=== PATIENT | male | born 1970 | race Caucasian/White ===

== ENCOUNTER → 2018-07-08 | Outpatient (CLI) | payer BC ==
--- NOTE | 2018-07-08 10:41 | XR ---
EXAMINATION TYPE: XR chest 2V DATE OF EXAM: 07/08/2018 COMPARISON: None HISTORY: 48-year-old male tobacco use and shortness of breath TECHNIQUE: Frontal and lateral views FINDINGS: The cardiomediastinal silhouette, aorta, and pulmonary vasculature are within normal limits. Lungs an d pleural spaces are clear. IMPRESSION: No acute cardiopulmonary process.
== END | disposition home or self-care (01) ==
LOC: RADXRMAIN 09:20
PROVIDERS: ATTEND Nurse Practitioner Family
DX: R06.02 Shortness of breath (principal); Z72.0 Tobacco use
CPT/HCPCS: 71046

== ENCOUNTER 2018-07-13 08:28 | Day surgery (SDC) | payer BC, MEDICAID ==
[2018-07-12 09:32] VITALS: BMI 25.7
[~2018-07-13 08:28] MED LIST: HYDROmorphone 0.5 MG/0.5 ML SYRINGE IVP PRN; LACTATED RINGERS 1,000 ML IV SCH; LIDOCAINE 1% 20 ML VIAL (10MG/ML) FOR IV START INTRADERMA PRN
[2018-07-13 08:51] VITALS: TEMP 97.9
[2018-07-13] MEDS ORDERED: LIDOCAINE 1% INJ 10MG/ML (20 ML MDV) ONE (09:38)
[2018-07-13] MEDS ORDERED: fentaNYL (PF) 50 MCG/ML 2 ML AMP ONE (09:38)
[2018-07-13] MEDS ORDERED: MIDAZOLAM 2 MG/2 ML VIAL ONE (09:38)
[2018-07-13] MEDS ORDERED: PROPOFOL 10 MG/ML 20 ML VIAL IV ONE (09:38)
--- NOTE | 2018-07-13 09:41 | P.GSHP ---
History of Present Illness H&P Date: 07/13/18 Chief Complaint: Screening colonoscopy This is a 48-year-old male presents today for screening colonoscopy. Patient denies a significant GI complaints. Past Medical History Past Medical History: No Reported History History of Any Multi-Drug Resistant Organisms: None Reported Past Surgical History: Appendectomy Past Anesthesia/Blood Transfusion Reactions: No Reported Reaction Smoking Status: Current every day smoker - Past Family History Mother Family Medical History: No Reported History Medications and Allergies Home Medications Medication Instructions Recorded Confirmed Type No Known Home Medications 07/12/18 07/13/18 History Allergies Allergy/AdvReac Type Severity Reaction Status Date / Time No Known Allergies Allergy Verified 07/13/18 08:48 Surgical - Exam Vital Signs Temp Pulse Resp BP Pulse Ox 97.9 F 92 18 166/90 97 07/13/18 08:50 07/13/18 08:50 07/13/18 08:50 07/13/18 08:50 07/13/18 08:50 - General well developed, no distress - Eyes PERRL - ENT normal pinna - Neck no masses - Respiratory normal expansion - Cardiovascular Rhythm: regular - Abdomen Abdomen: soft, non tender Assessment and Plan Assessment: We will perform screening colonoscopy.
--- NOTE | 2018-07-13 09:54 | P.OP ---
Date of Procedure: 07/13/18 Preoperative Diagnosis: Screening colonoscopy Postoperative Diagnosis: Diverticulosis Right colon polyp Procedure(s) Performed: Colonoscopy Anesthesia: MAC Surgeon: Brayan Dos Santos Pathology: other (Right colon polyp) Condition: stable Disposition: PACU Description of Procedure: The patient's placed on the endoscopy table in the lateral position. He received IV sedation. Digital rectal exam was performed which revealed no abnormalities. The flexible colonoscope was then placed patient anus and passed throughout the entire colon. The ileocecal valve was visualized. The cecum appeared normal. In the right colon there was a small polyp. This removed the forcep. The transverse colon was normal. In the descending and sigmoid colon there is moderate diverticular changes. Scope was then brought back the rectum and this appeared normal. Scope was withdrawn for patient..
[2018-07-13 10:26] VITALS: BP 147/92; PULSE 85; RESP 16
== END 2018-07-13 11:59 | disposition home or self-care (01) ==
LOC: ORWHC2ENDO 08:28
PROVIDERS: ATTEND Surgery
DX: Z12.11 Encounter for screening for malignant neoplasm of colon (principal); D12.2 Benign neoplasm of ascending colon; K57.30 Diverticulosis of large intestine without perforation or abscess without bleeding; F17.210 Nicotine dependence, cigarettes, uncomplicated
CPT/HCPCS: 88305; 45380; J2250; J2001; J3010; J2704

== ENCOUNTER 2020-02-14 20:54 | Emergency (ER) | payer BC, OTHER ==
[2020-02-14] MEDS ORDERED: LIDOCAINE 1% INJ 10MG/ML (20 ML MDV) SQ ONE (21:48)
[2020-02-14] MEDS ORDERED: CEPHALEXIN 500MG STARTER PACK 4 CAP BTL PO STA (21:48)
--- NOTE | 2020-02-14 22:05 | XR ---
EXAMINATION TYPE: XR knee complete RT DATE OF EXAM: 02/14/2020 COMPARISON: NONE HISTORY: Knee pain TECHNIQUE: 3 views FINDINGS: There is laceration deformity over the anterior proximal tibia. There is mild spurring of t he anterior patella. I see no fracture nor dislocation. Joint spaces are normal. IMPRESSION: Laceration deformity. No fracture seen. There is probably small multiple soft tissue fore ign bodies at the laceration site.
[2020-02-14] MEDS ORDERED: WATER FOR IRRIG, STERILE 1,000 ML BTL IRRIGATION ONE (22:14)
[2020-02-14] MEDS ORDERED: DIPH,PERTUS(ACELL)TETVAC-LF 0.5 ML VIAL IM ONE (22:37)
--- NOTE | 2020-02-14 23:30 | ED ---
Lower Extremity Injury HPI - General Chief Complaint: Extremity Injury, Lower Stated Complaint: Knee lac Time Seen by Provider: 02/14/20 21:14 Source: patient Mode of arrival: ambulatory Limitations: no limitations - History of Present Illness Initial Comments: 49-year-old male patient presents to the emergency department today for evaluation of laceration to the right knee. Patient states around 7:00 this evening he [place] dock when he tripped and fell forward landing on the right knee. Patient does report a laceration to the knee. Reports minimal pain no difficulty with range of motion. He is unsure when his last tetanus vaccine was given. He denies hitting his head or losing consciousness with this. Denies any neck or back pain. Denies any other injuries. Patient denies any headache, chest pain, shortness of breath, dizziness, weakness, abdominal pain, nausea, vomiting, or difficulties with bowel movements or urination. - Related Data Previous Rx's Medication Instructions Recorded Cephalexin [Keflex] 500 mg PO Q6HR #40 cap 02/14/20 Ibuprofen [Motrin] 600 mg PO Q8HR PRN #30 tab 02/14/20 Allergies Allergy/AdvReac Type Severity Reaction Status Date / Time No Known Allergies Allergy Verified 02/14/20 21:05 Review of Systems ROS Statement: Those systems with pertinent positive or pertinent negative responses have been documented in the HPI. ROS Other: All systems not noted in ROS Statement are negative. Past Medical History Past Medical History: No Reported History History of Any Multi-Drug Resistant Organisms: None Reported Past Surgical History: No Surgical Hx Reported Past Psychological History: No Psychological Hx Reported Smoking Status: Current every day smoker Past Alcohol Use History: Occasional Past Drug Use History: None Reported General Exam Limitations: no limitations General appearance: alert, in no apparent distress, other (This is a well- developed, well-nourished adult male patient in no acute distress. Vital signs upon presentation are temperature 97.7F, pulse 83, respirations 16, blood pressure 144/90, pulse ox 99% on room air.) Eye exam: Present: normal appearance, PERRL, EOMI. Absent: scleral icterus, conjunctival injection, periorbital swelling ENT exam: Present: normal exam, normal oropharynx, mucous membranes moist Neck exam: Present: normal inspection, full ROM, other (Nontender, no step-off, no deformity to firm midline palpation of the posterior cervical spine. Full range of motion without pain or limitation.). Absent: tenderness, meningismus, lymphadenopathy Respiratory exam: Present: normal lung sounds bilaterally. Absent: respiratory distress, wheezes, rales, rhonchi, stridor Cardiovascular Exam: Present: regular rate, normal rhythm, normal heart sounds. Absent: systolic murmur, diastolic murmur, rubs, gallop, clicks GI/Abdominal exam: Present: soft, normal bowel sounds. Absent: distended, tenderness, guarding, rebound, rigid Extremities exam: Present: full ROM (Plantar and dorsiflexion are intact. Full flexion and extension of the right knee present.), tenderness (Right anterior knee), normal capillary refill, other (8cm flap laceration noted to the right knee just below the patella, no bleeding noted, surrounding ecchymosis. There is obvious contamination of the wound with dirt and debris. The surrounding skin is pink, warm, dry. Cap refills less than 3 seconds. Pedal and posttibial pulses are 2+ and equal bilaterally.). Absent: normal inspection, pedal edema, joint swelling, calf tenderness Back exam: Present: other (Nontender, no step-off, no deformity to firm midline palpation of the thoracic and lumbar vertebrae. Full range of motion without pain or limitation.). Absent: vertebral tenderness Neurological exam: Present: alert, oriented X3, CN II-XII intact Psychiatric exam: Present: normal affect, normal mood Skin exam: Present: warm, dry, intact, normal color. Absent: rash Course Vital Signs 02/14/20 02/14/20 21:02 23:35 Temperature 97.7 F 98.3 F Pulse Rate 83 55 L Respiratory 16 20 Rate Blood Pressure 144/90 155/78 O2 Sat by Pulse 99 99 Oximetry Procedures - Laceration Laceration #1 Consent Obtained: verbal consent Indication: laceration Site: lower extremity (Right leg) Size (cm): 8 Description: flap, contaminated, foreign body Depth: simple, single layer Anesthetic Used: lidocaine 1% Anesthesia Technique: local infiltration Amount (mls): 14 Pre-repair: wound explored, irrigated extensively Type of Sutures: nylon Size of Sutures: 4-0 Number of Sutures: 10 Technique: simple, interrupted Patient Tolerated Procedure: well, no complications Medical Decision Making - Medical Decision Making 49-year-old male patient presented to the emergency department today for eval uation of laceration to the right knee. Physical examination did reveal an 8 cm flap-like laceration to the right knee, excoriation of the wound did reveal dirt, debris, small stones. There was visible tendon. My attending Dr. Mercado was in to evaluate the laceration. This was irrigated extensively with 1000 mL of sterile water, cleanse using sterile gauze. Once cleansing was satisfactory did close the wound as documented. We did start antibiotics and he was given tetanus vaccine. X-ray showed no evidence for osseous abnormalities. He'll be discharged follow up with orthopedics for further evaluation. He is instructed to return in 14 days for suture removal. Return parameters discussed in detail. He verbalizes understanding and agrees with this plan. - Radiology Data Radiology results: report reviewed, image reviewed 3 views of the right knee are obtained. Report was reviewed in its entirety. Impression by Dr. Soliz shows laceration deformity. No fracture seen. There is probably small multiple soft tissue foreign bodies of the laceration site. Disposition Clinical Impression: Laceration of right knee Disposition: HOME SELF-CARE Condition: Good Instructions (If sedation given, give patient instructions): Care For Your Stitches (ED), Laceration (ED) Additional Instructions: Keep wound clean and dry. Cleanse twice daily with warm water and antibacterial soap. Monitor for signs or symptoms of infection including but not limited to redness, swelling, drainage of pus, fever, or chills. Follow-up with contract law specialist for further evaluation of the area. Return to the emergency department immediately for any new, worsening, or concerning symptoms. Prescriptions: Cephalexin [Keflex] 500 mg PO Q6HR #40 cap Ibuprofen [Motrin] 600 mg PO Q8HR PRN #30 tab PRN Reason: Pain Is patient prescribed a controlled substance at d/c from ED?: No Referrals: Prashant Jordan III, MD [Primary Care Provider] - 1-2 days Jesus Mao MD [Medical Doctor] - 1-2 days Time of Disposition: 23:30
[2020-02-14 23:45] VITALS: BP 155/78; PULSE 55; RESP 20; TEMP 98.3
== END 2020-02-14 23:35 | disposition home or self-care (01) ==
LOC: EC 20:54
DX: S81.011A Laceration without foreign body, right knee, initial encounter (principal); F17.200 Nicotine dependence, unspecified, uncomplicated; Z23 Encounter for immunization; W01.0XXA Fall on same level from slipping, tripping and stumbling without subsequent striking against object, initial encounter; Y93.01 Activity, walking, marching and hiking; Y92.89 Other specified places as the place of occurrence of the external cause
CPT/HCPCS: 73562; 90715; 99283; 90471; 12034; J2001

== ENCOUNTER 2020-03-01 11:34 | Emergency (ER) | payer BC, OTHER ==
--- NOTE | 2020-03-01 12:15 | ED ---
Wound/Laceration HPI - General Chief Complaint: Wound/Laceration Stated Complaint: infected suture site Time Seen by Provider: 03/01/20 11:43 Source: patient Mode of arrival: ambulatory Limitations: no limitations - History of Present Illness Initial Comments: Patient is a 49-year-old male presenting to the emergency room with a chief complaint of an infected laceration site. Patient states he was in emergency department 2 weeks ago for a laceration on the anterior aspect of the right knee. Patient states there was some tendon exposure as well as foreign bodies at the laceration site. Patient states he was discharged with 10 days worth of antibiotics and advised to return for suture removal. States he never followed up with an database specialist. Patient denies any night sweats fevers or chills. Denies any surrounding erythema at the site or any discharge. Denies any nausea or vomiting. - Related Data Previous Rx's Medication Instructions Recorded Cephalexin [Keflex] 500 mg PO Q6HR #40 cap 02/14/20 Ibuprofen [Motrin] 600 mg PO Q8HR PRN #30 tab 02/14/20 Cephalexin [Keflex] 500 mg PO Q6HR 3 Days #12 cap 03/01/20 Allergies Allergy/AdvReac Type Severity Reaction Status Date / Time No Known Allergies Allergy Verified 03/01/20 11:37 Review of Systems ROS Statement: Those systems with pertinent positive or pertinent negative responses have been documented in the HPI. ROS Other: All systems not noted in ROS Statement are negative. Past Medical History Past Medical History: No Reported History History of Any Multi-Drug Resistant Organisms: None Reported Past Surgical History: No Surgical Hx Reported Past Psychological History: No Psychological Hx Reported Smoking Status: Current every day smoker Past Alcohol Use History: Occasional Past Drug Use History: None Reported General Exam Limitations: no limitations General appearance: alert, in no apparent distress Head exam: Present: atraumatic, normocephalic, normal inspection Eye exam: Present: normal appearance, PERRL, EOMI Pupils: Present: normal accommodation ENT exam: Present: normal exam, normal oropharynx, mucous membranes moist Neck exam: Present: normal inspection, full ROM Respiratory exam: Present: normal lung sounds bilaterally. Absent: respiratory distress, wheezes, rales Cardiovascular Exam: Present: regular rate, normal rhythm, normal heart sounds Extremities exam: Present: full ROM, normal capillary refill, other (plus to the Celsius the posterior tibial bilaterally.). Absent: normal inspection (Laceration measuring approximately a centimeters with no surrounding erythema or discharge. No signs of infection. Laceration site healing well.), tenderness (No range of motion at the site of injury.) Back exam: Present: normal inspection, full ROM. Absent: tenderness, CVA tenderness (R), CVA tenderness (L) Neurological exam: Present: alert, oriented X3 Psychiatric exam: Present: normal affect, normal mood Skin exam: Present: warm, dry, intact, normal color Course Vital Signs 03/01/20 11:36 Temperature 98 F Pulse Rate 97 Respiratory 18 Rate Blood Pressure 166/111 O2 Sat by Pulse 98 Oximetry Medical Decision Making - Medical Decision Making Patient is a 49-year-old male presenting to the emergency room with a chief complaint of a laceration site infection. I examined the laceration site is healing well and does not appear infected. No surrounding erythema or discharge noted. Patient has full range of motion with no numbness or tingling. No constitutional signs that would indicate an infection. Patient will be given a Keflex starter pack and 3 more days of Keflex. He was advised to follow-up with an database specialist as soon as possible. Strict return parameters were thoroughly discussed with patient was understanding and agreeable. Laceration site instructions given. Case discussed with physician. Disposition Clinical Impression: Healing laceration, Laceration of right knee Disposition: HOME SELF-CARE Condition: Stable Instructions (If sedation given, give patient instructions): Care For Your Stitches (DC), Laceration (DC) Additional Instructions: Follow-up with an database specialist. Continue taking the prescribed medication. Return to emergency department if symptoms worsen. Prescriptions: Cephalexin [Keflex] 500 mg PO Q6HR 3 Days #12 cap Is patient prescribed a controlled substance at d/c from ED?: No Referrals: Prashant Jordan III, MD [Primary Care Provider] - 1-2 days Anthony Wilkins PAC [PHYSICIAN CLINICAL PSYCHOLOGIST LICENSED] - 1-2 days Time of Disposition: 13:13
[2020-03-01] MEDS ORDERED: CEPHALEXIN 500MG STARTER PACK 4 CAP BTL PO STA (13:12)
[2020-03-01 13:31] VITALS: BP 159/89; PULSE 94; RESP 16; TEMP 98.2
== END 2020-03-01 13:30 | disposition home or self-care (01) ==
LOC: EC 11:34
DX: S81.011D Laceration without foreign body, right knee, subsequent encounter (principal); F17.200 Nicotine dependence, unspecified, uncomplicated; X58.XXXD Exposure to other specified factors, subsequent encounter
CPT/HCPCS: 99282

== ENCOUNTER 2020-10-04 08:55 | Day surgery (SDC) | payer OTHER ==
[2020-10-02 11:05] VITALS: BMI 29.0
[~2020-10-04 08:55] MED LIST changes: -HYDROmorphone 0.5 MG/0.5 ML SYRINGE IVP PRN; +LIDOCAINE 1% (10MG/ML) FOR IV START INTRADERMA PRN; -LIDOCAINE 1% 20 ML VIAL (10MG/ML) FOR IV START INTRADERMA PRN
[2020-10-04] MEDS ORDERED: LACTATED RINGERS 1,000 ML IV ONE (09:12)
[2020-10-04 09:13] VITALS: TEMP 98
[2020-10-04] MEDS ORDERED: PROPOFOL 10 MG/ML 20 ML VIAL IV ONE (10:36)
--- NOTE | 2020-10-04 10:36 | P.GSHP ---
History of Present Illness H&P Date: 10/04/20 Chief Complaint: History of colon polyps Is a 50-year-old male presents today for colonoscopy. Patient appears history of colon polyps. His last colonoscopy was 3 years ago. Past Medical History Past Medical History: GERD/Reflux, Hyperlipidemia, Hypertension History of Any Multi-Drug Resistant Organisms: None Reported Past Surgical History: Appendectomy Additional Past Surgical History / Comment(s): colonoscopy Past Anesthesia/Blood Transfusion Reactions: No Reported Reaction Smoking Status: Current every day smoker - Past Family History Mother Family Medical History: No Reported History Medications and Allergies Home Medications Medication Instructions Recorded Confirmed Type Atorvastatin [Lipitor] 20 mg PO HS 10/02/20 10/02/20 History Hydrochlorothiazide 12.5 mg PO DAILY 10/02/20 10/02/20 History [hydroCHLOROthiazide] Losartan Potassium 50 mg PO DAILY 10/02/20 10/02/20 History Allergies Allergy/AdvReac Type Severity Reaction Status Date / Time No Known Allergies Allergy Verified 10/02/20 10:59 Surgical - Exam Vital Signs Temp Pulse Resp BP Pulse Ox 98 F 98 18 163/95 97 10/04/20 09:11 10/04/20 09:11 10/04/20 09:11 10/04/20 09:11 10/04/20 09:11 - General well developed, well nourished, no distress - Eyes PERRL - ENT normal pinna - Neck no masses - Respiratory normal expansion - Cardiovascular Rhythm: regular - Abdomen Abdomen: soft, non tender Assessment and Plan Assessment: History of colon polyps. We'll perform colonoscopy.
--- NOTE | 2020-10-04 10:48 | P.OP ---
Date of Procedure: 10/04/20 Preoperative Diagnosis: History of colon polyps Postoperative Diagnosis: Diverticulosis Procedure(s) Performed: Colonoscopy Anesthesia: MAC Surgeon: Brayan Dos Santos Pathology: none sent Condition: stable Disposition: PACU Description of Procedure: The patient's placed on the endoscopy table in the lateral position. He received IV sedation. Digital rectal exam was performed which revealed no abnormalities. Flexible colonoscope was then placed patient anus passed rotator colon. The ileocecal valve was visualized. The cecum, ascending and transverse colon appeared normal. The descending and sigmoid colon exam. There is evidence of diverticular changes. The scope was then brought back the rectum and this appeared normal. Scope was withdrawn for patient.
[2020-10-04 10:50] VITALS: RESP 16
[2020-10-04 11:14] VITALS: BP 134/85; PULSE 91
== END 2020-10-04 11:23 | disposition home or self-care (01) ==
LOC: ORWHC2ENDO 08:55
PROVIDERS: ATTEND Surgery
DX: Z12.11 Encounter for screening for malignant neoplasm of colon (principal); K57.30 Diverticulosis of large intestine without perforation or abscess without bleeding; Z86.010 Personal history of colon polyps; K21.9 Gastro-esophageal reflux disease without esophagitis; E78.5 Hyperlipidemia, unspecified; I10 Essential (primary) hypertension; F17.210 Nicotine dependence, cigarettes, uncomplicated; Z90.89 Acquired absence of other organs; Z79.899 Other long term (current) drug therapy; Z98.890 Other specified postprocedural states
CPT/HCPCS: G0105; J2704; 45378

== ENCOUNTER → 2024-09-26 | Outpatient (CLI) | payer BC ==
--- NOTE | 2024-09-26 11:38 | CTL ---
EXAMINATION TYPE: CT Low Dose Lung DATE OF EXAM ORDERED: 09/26/2024 COMPARISON: None. CLINICAL INDICATION: Male, 54 years old with history of F17.210 nicotine dependence; PHH, SMOKER, Hermes g cancer screening, History of Smoking/tobacco use. TECHNIQUE: Low dose computed tomography scan was performed through the chest at 1 mm thick sections a nd reconstructed images in multiple planes at 1 mm and [address] DLP: 129.[address] CTDI: 3.3 mGy Automated exposure control for dose reduction was used. CT DIAGNOSTIC QUALITY: Satisfactory FINDINGS: Nodules: Scattered small nodules are present. No greater than 6 mm pulmonary nodules. RUL: None. RML: None. RLL: There is 4 mm peripheral right lower lobe nodule axial image 196. There is 3 to 4 mm right lowe r lobe nodule axial image 174. EMMANUEL: None. LLL: None. LUNGS: COPD: Severity: Mild Fibrosis: Severity: None Lymph nodes: None Other findings: None RIGHT PLEURAL SPACE: Effusion: None Calcification: None Thickening: None Pneumothorax: None LEFT PLEURAL SPACE: Effusion: None Calcification: None Thickening: None Pneumothorax: None HEART: Heart Size: Normal Coronary Calcification: Mild Pericardial Effusion: None OTHER FINDINGS: Upper abdomen: None Bony thorax: None Supraclavicular region: None Other: None IMPRESSION: Mild emphysematous change with a few small scattered nodules. No significant greater than [address] LUNG RAD AND CT CHEST RECOMMENDATION: Lung-Rad 2 Benign Appearance or Behavior: Continue annual sc reening with LDCT in 12 months. S Modifier (other clinically significant findings): None [facility], , 09/26/2024 11:36 AM
== END | disposition home or self-care (01) ==
LOC: RADCTMAIN 09:52
PROVIDERS: ATTEND Family Medicine
DX: Z12.2 Encounter for screening for malignant neoplasm of respiratory organs (principal); F17.210 Nicotine dependence, cigarettes, uncomplicated; R91.8 Other nonspecific abnormal finding of lung field; J43.9 Emphysema, unspecified
CPT/HCPCS: 71271

== ENCOUNTER → 2024-11-22 | Outpatient (CLI) | payer BC ==
--- NOTE | 2024-11-22 09:48 | CT ---
EXAMINATION TYPE: CT abdomen pelvis wo con DATE OF EXAM: 11/22/2024 9:32 AM COMPARISON: None. CLINICAL INDICATION: Male, 54 years old with history of K57.92 DIVERTICULI; Diverticuli. TECHNIQUE: Axial CT abdomen pelvis wo con;Sagittal and coronal reformats were created on a separate workstation. Contrast used: mL of , (none if empty) Oral contrast used: without Oral Contrast (none if empty) CT DLP: 1034 mGycm, Automated exposure control for dose reduction was used. FINDINGS: LOWER CHEST: Unremarkable ABDOMEN LIVER: Diffusely hypoattenuating parenchyma. GALLBLADDER AND BILE DUCTS: Unremarkable. PANCREAS: Unremarkable. SPLEEN: Unremarkable. ADRENAL GLANDS: Unremarkable. KIDNEYS AND URETERS: No evidence of hydronephrosis or renal calculus. The ureters are unremarkable. Perinephric fat stranding is symmetrical. PELVIS BLADDER: No evidence for wall thickening or mass given limitations of exam. REPRODUCTIVE: Unremarkable. ABDOMEN & PELVIS STOMACH AND BOWEL: No evidence of bowel obstruction. Scattered colonic diverticula there may be mildl y increased inflammation changes around some of these. PERITONEUM/RETROPERITONEUM: No evidence of pneumoperitoneum or free fluid. VASCULATURE: Mild atherosclerotic calcifications are present throughout the abdominal aorta and its b ranches. No evidence of aortic aneurysm. MUSCULOSKELETAL: No acute osseous abnormalities. Moderate disc degeneration changes are present throu ghout the thoracolumbar spine. LYMPH NODES: No gross evidence for lymphadenopathy. SOFT TISSUE/ABDOMINAL WALL: Unremarkable IMPRESSION: 1. Extensive colonic diverticulosis in the sigmoid colon. There may be mild inflammation changes con sisting mild diverticulitis/colitis. No evidence for perforation or organizing for collection. 2. Bilateral perinephric fat stranding correlate with urinalysis an renal function markers. 3. Hepatic steatosis.r [facility], , 11/22/2024 9:46 AM
== END | disposition home or self-care (01) ==
LOC: RADCTMAIN 08:57
PROVIDERS: ATTEND Family Medicine
DX: K76.0 Fatty (change of) liver, not elsewhere classified (principal); K57.30 Diverticulosis of large intestine without perforation or abscess without bleeding
CPT/HCPCS: 74176